=== PATIENT | female | born 2000 | race Caucasian/White ===

== ENCOUNTER 2020-10-06 18:36 | Inpatient (IN) | payer OTHER ==
[~2020-10-06 18:36] MED LIST: Iopamidol-370 76% 500 ML 1 ML ONE
--- NOTE | 2020-10-06 19:13 | RAD ---
Portable frontal chest radiograph: 10/06/2020 COMPARISON: None HISTORY: Short of breath FINDINGS: Diffuse nonspecific interstitial and hazy groundglass opacity noted in the inferior upper l obe regions, bilateral perihilar regions, and both lung bases. No pneumothorax. No large volume pleural effusion. IMPRESSION: Nonspecific interstitial and groundglass opacity bilaterally. Findings are suspicious for atypical infectious pneumonitis, such as Covid 19, in the proper clinical setting. Short-term follow-up imaging of the chest following treatment advised to document resolution.
[2020-10-06 19:18] LABS: #Lymphocytes 0.7 thou/uL (1.20-3.40); #Monocytes 0.3 thou/uL (0.11-0.59); #Neutrophils 5.6 thou/uL (1.40-6.50); %Basophils 0.7 % (0.0-1.0); %Eosinophils 0.1 % (0.0-10.0); %Lymphocytes 10.1 % (28.0-48.0); Hemoglobin 13.6 g/dL (12.0-16.0); Mean Corpuscular HGB CONC 33.6 g/dL (32.0-36.0); Mean Corpuscular Hemoglobin 28.4 pg (25.0-35.0); Mean Corpuscular Volume 84.5 fL (78.0-98.0); Mean Platelet Volume 8.1 fL (7.4-10.4); Platelet Count 208 thou/uL (130-400); RBC Distribution Width 12.5 % (11.5-14.5); Red Blood Cell (RBC) Count 4.79 mill/uL (4.00-5.20); White Blood Cell (WBC) Count 6.6 thou/uL (4.8-10.8)
[2020-10-06 19:38] LABS: ALT (SGPT) 13 U/L (8-55); AST (SGOT) 34 U/L (5-34); Albumin 4.1 g/dL (3.5-5.0); Alkaline Phosphatase 60 U/L (40-100); Anion Gap 16 mmol/L (10-20); BUN (Urea Nitrogen) 13 mg/dL (7.0-18.7); Bilirubin, Total 0.5 mg/dL (0.2-1.2); Calc. Creatinine Clearance 0 mL/min (70-130); Calcium 8.7 mg/dL (7.8-10.44); Carbon Dioxide 24 mmol/L (22-29); Chloride 103 mmol/L (98-107); Globulin 3.6 g/dL (2.4-3.5); Glucose 102 mg/dL (70-105); Potassium 3.3 mmol/L (3.5-5.1); Protein, Total 7.7 g/dL (6.0-8.3); Sodium 140 mmol/L (136-145)
[2020-10-06 20:15] LABS: BHCG - Serum Negative (NEGATIVE); Pregs Control Background? CLEAR/WHITE (CLR/WHITE); Pregs Control Bar Appear? YES (CONTROL BAR)
[2020-10-06] MEDS ORDERED: Ketorolac Tromethamine 30 MG/ML VIAL ONE (20:27)
--- NOTE | 2020-10-06 21:06 | CT ---
CT ANGIOGRAM OF CHEST WITH CONTRAST: 10/06/20 HISTORY: COVID symptoms, shortness of breath, nausea and vomiting. COMPARISON: Radiograph of the chest same day. FINDINGS: CT angiogram chest performed after the intravenous administration of contrast. 3D rendering provided. No proximal segmental pulmonary arterial filling defect. The aortic contour is normal. No pericardia l effusion. Reactive mediastinal lymph nodes. Moderate/extensive patchy ground glass opacities throughout the [place] gs. No pneumothorax. No pneumomediastinum. Thoracic spine is intact. Sternum and manubrium are intact. IMPRESSION: 1. No pulmonary embolism. 2. Moderate/extensive COVID pneumonia. No pneumothorax or pneumomediastinum. POS: HOME
[2020-10-06] MEDS ORDERED: Dexamethasone 10 MG/ML VIAL ONE (21:16)
[2020-10-06 21:53] LABS: SARS-CoV-2 NAA Rapid Test DETECTED (NotDetected)
[2020-10-06] MEDS ORDERED: Guaifenesin DM 100-10/5 ML UDCUP PO PRN (23:05)
[2020-10-06] MEDS ORDERED: Calcium Carbonate 500 MG ChewTAB PO PRN (23:05)
[2020-10-06] MEDS ORDERED: Ondansetron PF 4 MG/2 ML Vial IVP PRN (23:05)
[2020-10-06] MEDS ORDERED: Zolpidem Tartrate 5 MG TAB PO PRN (23:05)
[2020-10-06] MEDS ORDERED: HYDROcodone/Acetaminophen 7.5/325 mg Tablet PO PRN (23:05)
[2020-10-06] MEDS ORDERED: hydrALAZINE 20 MG/ML VIAL SLOW IVP PRN (23:07)
--- NOTE | 2020-10-06 23:55 | PDOC.HHP ---
Hospitalist HPI Cough and low oxygen History of Present Illness: 20-year-old female with history of mild obesity, admitted after noticing home O2 sats low at 79%. She has been having cough, fever, malaise, chest congestion and shortness of breath since the last 5 days. She denies any Covid exposure. She lives in the community with her roommate. She denies any headache or dizziness. On arrival in the ED her O2 sat was initially 85% and both improved on nasal cannula supplemental oxygen to greater than 90 now. Chest x-ray shows moderate extensive bilateral interstitial infiltrate consistent with Covid pneumonia. Rapid Covid screen was positive. She has been admitted Covid pneumonia with hypoxic respiratory failure Allergies/Adverse Reactions: Allergy/AdvReac Type Severity Reaction Status Date / Time amoxicillin Allergy Unverified 10/06/20 23:23 Past History: PMHx: None PSHx: None FHx: Both parents alive and well, mother with history of blood clots Social: No history of tobacco, alcohol or illicit drug use Hospitalist HPI ROS All other systems reviewed; all pertinent +/- noted in HPI/Subj Hospitalist Exam Vitals: Slightly overweight young female, on nasal cannula O2 1 L General Appearance: NAD, awake alert, ill appearing Eye: PERRL, anicteric sclera ENT: normocephalic atraumatic, no oropharyngeal lesions Neck: supple, symmetric, no JVD Heart: RRR, no murmur Respiratory: CTAB, no wheezes Gastrointestinal: soft, non-tender, no palpable masses Extremities: no cyanosis, no clubbing Skin: normal turgor, no lesions Neurological: cranial nerve grossly intact, no focal deficits Musculoskeletal: normal tone, normal strength Psychiatric: normal affect, normal behavior Hospitalist Results Result Diagrams: 10/06/20 19:05 10/06/20 19:05 Lab results: Laboratory Last Values WBC 6.6 thou/uL (4.8-10.8) 10/06/20 19:05 RBC 4.79 mill/uL (4.00-5.20) 10/06/20 19:05 Hgb 13.6 g/dL (12.0-16.0) 10/06/20 19:05 Hct 40.5 % (36.0-47.0) 10/06/20 19:05 MCV 84.5 fL (78.0-98.0) 10/06/20 19:05 MCH 28.4 pg (25.0-35.0) 10/06/20 19:05 MCHC 33.6 g/dL (32.0-36.0) 10/06/20 19:05 RDW 12.5 % (11.5-14.5) 10/06/20 19:05 Plt Count 208 thou/uL (130-400) 10/06/20 19:05 MPV 8.1 fL (7.4-10.4) 10/06/20 19:05 Neutrophils % 85.0 % (31.0-61.0) H 10/06/20 19:05 Lymphocytes % 10.1 % (28.0-48.0) L 10/06/20 19:05 Monocytes % 4.0 % (0.0-4.0) 10/06/20 19:05 Eosinophils % 0.1 % (0.0-10.0) 10/06/20 19:05 Basophils % 0.7 % (0.0-1.0) 10/06/20 19:05 Neutrophils # 5.6 thou/uL (1.40-6.50) 10/06/20 19:05 Lymphocytes # 0.7 thou/uL (1.20-3.40) L 10/06/20 19:05 Monocytes # 0.3 thou/uL (0.11-0.59) 10/06/20 19:05 Eosinophils # 0.0 thou/uL (0.0-0.7) 10/06/20 19:05 Basophils # 0.0 thou/uL (0.0-0.2) 10/06/20 19:05 D-Dimer 1.27 *mcg/mL (0.27-0.43) H 10/06/20 19:05 Sodium 140 mmol/L (136-145) 10/06/20 19:05 Potassium 3.3 mmol/L (3.5-5.1) L 10/06/20 19:05 Chloride 103 mmol/L (98-107) 10/06/20 19:05 Carbon Dioxide 24 mmol/L (22-29) 10/06/20 19:05 Anion Gap 16 mmol/L (10-20) 10/06/20 19:05 BUN 13 mg/dL (7.0-18.7) 10/06/20 19:05 Creatinine 0.80 mg/dL (0.6-1.1) 10/06/20 19:05 Estimated GFR (MDRD) Greater than 90 10/06/20 19:05 Glucose 102 mg/dL (70-105) 10/06/20 19:05 Calcium 8.7 mg/dL (7.8-10.44) 10/06/20 19:05 Ferritin 520.74 ng/mL (10-291) H 10/06/20 19:05 Total Bilirubin 0.5 mg/dL (0.2-1.2) 10/06/20 19:05 AST 34 U/L (5-34) 10/06/20 19:05 ALT 13 U/L (8-55) 10/06/20 19:05 Alkaline Phosphatase 60 U/L (40-100) 10/06/20 19:05 C-Reactive Protein 23.91 mg/dL (= or < 0.5) H 10/06/20 19:05 Serum Total Protein 7.7 g/dL (6.0-8.3) 10/06/20 19:05 Albumin 4.1 g/dL (3.5-5.0) 10/06/20 19:05 Globulin 3.6 g/dL (2.4-3.5) H 10/06/20 19:05 Albumin/Globulin Ratio 1.1 g/dL (1.2-2.2) L 10/06/20 19:05 TSH 3rd Generation 1.1614 uIU/mL (0.35-4.94) 10/06/20 19:05 Serum , Qual Negative (NEGATIVE) 10/06/20 19:05 Influenza A RNA INAAT Not Detected (NotDetected) 10/06/20 20:47 Influenza B RNA INAAT Not Detected (NotDetected) 10/06/20 20:47 SARS-CoV-2 Rap RNA(RT-PCR) DETECTED (NotDetected) A* 10/06/20 20:47 Hospitalist H&P A/P (1) Pneumonia due to COVID-19 virus Code(s): U07.1 - COVID-19; J12.82 - PNEUMONIA DUE TO CORONAVIRUS DISEASE 2019 Status: Acute (2) Respiratory failure with hypoxia Code(s): J96.91 - RESPIRATORY FAILURE, UNSPECIFIED WITH HYPOXIA Status: Acute (3) Hypokalemia Code(s): E87.6 - HYPOKALEMIA Status: Acute Plan: COVID-19 positive test (U07.1, COVID-19) with Acute Pneumonia (J12.89, Other viral pneumonia) (If respiratory failure or sepsis present, add as separate assessment) Start ivermectin/Decadron/zinc oxide Wean O2 as tolerated Keep in droplet isolation We will add inhaled budesonide if available Hypoxiaimproving with supplemental O2 Wean as tolerated DVT prophylaxissubcutaneous Lovenox Disposition possible hospital stay for 24 to 48 hours
[2020-10-06] MEDS ORDERED: Budesonide 0.25 MG/2 ML NEB INH SCH (23:59)
[2020-10-06] MEDS ORDERED: Ivermectin 3 MG TAB PO SCH (23:59)
[2020-10-06] MEDS ORDERED: Potassium Chloride 20 MEQ TAB PO SCH (23:59)
[2020-10-07 01:09] VITALS: BMI 26.4
[2020-10-07] MEDS ORDERED: Mometasone 100 MCG/PUFF (1 INHALER) INH SCH (01:15)
[2020-10-07] MEDS: Mometasone 100 MCG/PUFF (1 INHALER) INH SCH ×2 (05:39→18:29)
[2020-10-07] MEDS: Acetaminophen 325 MG TAB PO PRN ×3 (06:01→21:22)
[2020-10-07] MEDS ORDERED: Budesonide 0.25 MG/2 ML NEB INH SCH (06:30)
[2020-10-07 06:39] LABS: #Lymphocytes 0.6 thou/uL (1.20-3.40); #Monocytes 0.1 thou/uL (0.11-0.59); %Basophils 0.3 % (0.0-1.0); %Eosinophils 0.2 % (0.0-10.0); %Lymphocytes 12.8 % (28.0-48.0); %Neutrophils 84.6 % (31.0-61.0); Hemoglobin 12.7 g/dL (12.0-16.0); Mean Corpuscular HGB CONC 33.6 g/dL (32.0-36.0); Mean Corpuscular Hemoglobin 28.5 pg (25.0-35.0); Mean Corpuscular Volume 84.8 fL (78.0-98.0); Mean Platelet Volume 8.8 fL (7.4-10.4); Platelet Count 213 thou/uL (130-400); RBC Distribution Width 12.3 % (11.5-14.5); Red Blood Cell (RBC) Count 4.44 mill/uL (4.00-5.20); White Blood Cell (WBC) Count 4.8 thou/uL (4.8-10.8)
[2020-10-07 06:52] LABS: ALT (SGPT) 14 U/L (8-55); AST (SGOT) 36 U/L (5-34); Albumin 3.7 g/dL (3.5-5.0); Alkaline Phosphatase 53 U/L (40-100); Anion Gap 16 mmol/L (10-20); BUN (Urea Nitrogen) 14 mg/dL (7.0-18.7); Bilirubin, Total 0.5 mg/dL (0.2-1.2); Calc. Creatinine Clearance 155 mL/min (70-130); Calcium 8.7 mg/dL (7.8-10.44); Carbon Dioxide 24 mmol/L (22-29); Chloride 100 mmol/L (98-107); Globulin 3.6 g/dL (2.4-3.5); Glucose 124 mg/dL (70-105); Potassium 3.9 mmol/L (3.5-5.1); Protein, Total 7.3 g/dL (6.0-8.3); Sodium 136 mmol/L (136-145)
[2020-10-07] MEDS: Enoxaparin Sodium 40 MG/0.4 ML SYRINGE SC SCH (09:13)
[2020-10-07] MEDS: Famotidine 20 MG TAB PO SCH ×2 (09:13→21:09)
[2020-10-07] MEDS: Zinc Sulfate 220 MG CAP PO SCH (09:13)
[2020-10-07] MEDS: guaiFENesin ER 600 MG TAB PO SCH ×2 (09:14→21:10)
[2020-10-07] MEDS: Dexamethasone 4 MG TAB PO SCH ×2 (09:14→16:35)
--- NOTE | 2020-10-07 11:28 | PDOC.HOSPP ---
- Subjective Encounter Date: 10/07/20 Encounter Time: 11:26 Subjective: Patient reports shortness of breath. She has intermittent dry cough. She is now requiring 4 L of oxygen by nasal cannula to keep her oxygen saturation above 90%. Noted checks x-ray and CTA thorax report moderate to severe bilateral infiltrates. - Objective Vital Signs & Weight: Vital Signs (12 hours) Temp Pulse Resp BP Pulse Ox 10/07/20 07:10 98.7 F 84 20 126/78 91 L 10/07/20 05:08 98.4 F 80 20 109/64 93 L 10/07/20 01:04 98.5 F 86 26 H 112/76 90 L Weight Weight 174 lb 2.643 oz Result Diagrams: 10/07/20 05:54 10/07/20 05:54 Hospitalist ROS - Medication Medications: Active Medications Generic Name Dose Route Start Last Admin Trade Name Freq PRN Reason Stop Dose Admin Acetaminophen 650 mg 10/06/20 23:05 10/07/20 10:29 Acetaminophen 325 Mg Tab PO 650 mg Q4H PRN Administration Headache/Fever/Mild Pain (1-3) Dexamethasone 4 mg 10/07/20 08:00 10/07/20 09:14 Dexamethasone 4 Mg Tab PO 4 mg BID-WM DANIA Administration Enoxaparin Sodium 40 mg 10/07/20 09:00 10/07/20 09:13 Enoxaparin Sodium 40 Mg/0.4 Ml Syringe SC 40 mg 0900 DANIA Administration Famotidine 20 mg 10/07/20 09:00 10/07/20 09:13 Famotidine 20 Mg Tab PO 20 mg BID DANIA Administration Guaifenesin 1,200 mg 10/07/20 09:00 10/07/20 09:14 Guaifenesin Er 600 Mg Tab PO 1,200 mg Q12HR DANIA Administration Mometasone Furoate 200 mcg 10/07/20 06:30 10/07/20 05:39 Mometasone 100 Mcg/Puff (1 Inhaler) INH 2 inh BID-RT DANIA Administration Zinc Sulfate 220 mg 10/07/20 09:00 10/07/20 09:13 Zinc Sulfate 220 Mg Cap PO 220 mg DAILY DANIA Administration Hospitalist Exam Vitals: Vital Signs (12 hours) Temp Pulse Resp BP Pulse Ox 10/07/20 07:10 98.7 F 84 20 126/78 91 L 10/07/20 05:08 98.4 F 80 20 109/64 93 L 10/07/20 01:04 98.5 F 86 26 H 112/76 90 L Weight Weight 174 lb 2.643 oz General Appearance: NAD, awake alert Eye: anicteric sclera ENT: moist mucosa Neck: no JVD Heart: RRR Respiratory - other findings: Nonlabored breathing. Gastrointestinal: non-distended Extremities: no cyanosis, no edema Skin: no rashes Neurological: no focal deficits Psychiatric: normal affect, normal behavior, A&O x 3 Hosp A/P (1) Respiratory failure with hypoxia Code(s): J96.91 - RESPIRATORY FAILURE, UNSPECIFIED WITH HYPOXIA Status: Acute (2) Pneumonia due to COVID-19 virus Code(s): U07.1 - COVID-19; J12.82 - PNEUMONIA DUE TO CORONAVIRUS DISEASE 2019 Status: Acute (3) Hypokalemia Code(s): E87.6 - HYPOKALEMIA Status: Acute - Plan Patient now requiring 4 L of oxygen by nasal cannula. Her respiratory condition is getting worse. Pharmacy contacted to evaluate for remdesivir therapy. Continue dexamethasone Continue vitamin C, vitamin D and zinc supplementations. Titrate oxygen. Hypokalemia corrected. Continue to monitor inflammatory markers.
[2020-10-07] MEDS ORDERED: REMDESIVIR (EUA) 200 MG in Sodium Chloride 0.9% 250 ML 210 ML IV SCH (13:00)
[2020-10-08] MEDS: Mometasone 100 MCG/PUFF (1 INHALER) INH SCH ×2 (05:49→18:33)
[2020-10-08] MEDS: Enoxaparin Sodium 40 MG/0.4 ML SYRINGE SC SCH (08:28)
[2020-10-08] MEDS: Zinc Sulfate 220 MG CAP PO SCH (08:28)
[2020-10-08] MEDS: Dexamethasone 4 mg/ml Vial SLOW IVP SCH (08:30)
[2020-10-08] MEDS: Colchicine 0.6 MG TAB PO SCH ×2 (08:30→19:59)
[2020-10-08] MEDS: guaiFENesin ER 600 MG TAB PO SCH ×2 (08:30→19:59)
[2020-10-08] MEDS: REMDESIVIR (EUA) 100 MG in Sodium Chloride 0.9% 250 ML 230 ML IV SCH (14:41)
--- NOTE | 2020-10-08 17:16 | PDOC.HOSPP ---
- Subjective Encounter Date: 10/08/20 Encounter Time: 09:30 Subjective: Seen in follow-up for acute hypoxic respiratory failure. She reports feeling better than yesterday. Reports cough, small amount of sputum. Does not know if she had fever. - Objective Vital Signs & Weight: Vital Signs (12 hours) Temp Pulse Resp BP Pulse Ox 10/08/20 08:40 99 10/08/20 07:00 98.3 F 80 18 145/73 H 99 10/08/20 05:18 98.2 F 73 20 98/66 93 L Weight Weight 174 lb 2.643 oz I&O: 10/07/20 10/08/20 10/09/20 06:59 06:59 06:59 Intake Total 240 Balance 240 Result Diagrams: 10/07/20 05:54 10/07/20 05:54 Additional Labs: Labs and MAR reviewed by or Hospitalist ROS - Review of Systems Respiratory: reports: cough, SOB with excertion, sputum. denies: dry, shortness of breath, hemoptysis, pleuritic pain, wheezing Cardiovascular: denies: chest pain, palpitations, orthopnea, paroxysmal noc. dyspnea, edema, light headedness - Medication Medications: Active Medications Generic Name Dose Route Start Last Admin Trade Name Freq PRN Reason Stop Dose Admin Acetaminophen 650 mg 10/06/20 23:05 10/07/20 21:22 Acetaminophen 325 Mg Tab PO 650 mg Q4H PRN Administration Headache/Fever/Mild Pain (1-3) Colchicine 0.6 mg 10/08/20 09:00 10/08/20 08:30 Colchicine 0.6 Mg Tab PO 0.6 mg BID DANIA Administration Dexamethasone 6 mg 10/08/20 09:00 10/08/20 08:30 Dexamethasone 4 Mg/Ml Vial SLOW IVP 6 mg DAILY DANIA Administration Enoxaparin Sodium 40 mg 10/07/20 09:00 10/08/20 08:28 Enoxaparin Sodium 40 Mg/0.4 Ml Syringe SC 40 mg 0900 DANIA Administration Guaifenesin 1,200 mg 10/07/20 09:00 10/08/20 08:30 Guaifenesin Er 600 Mg Tab PO 1,200 mg Q12HR DANIA Administration Remdesivir 100 mg/ Sodium 250 mls @ 250 mls/hr 10/08/20 13:00 10/08/20 14:41 Chloride IV 10/11/20 13:59 250 mls 1300 DANIA Administration Mometasone Furoate 200 mcg 10/07/20 06:30 10/08/20 05:49 Mometasone 100 Mcg/Puff (1 Inhaler) INH 2 inh BID-RT DANIA Administration Pantoprazole Sodium 40 mg 10/08/20 09:00 10/08/20 08:30 Pantoprazole 40 Mg Tab PO 40 mg DAILY DANIA Administration Sodium Chloride 10 ml 10/08/20 09:00 10/08/20 08:31 Flush - Normal Saline 10 Ml Syringe IVF 10 ml Q12HR DANIA Administration Sodium Chloride 10 ml 10/08/20 08:00 10/08/20 14:41 Flush - Normal Saline 10 Ml Syringe IVF 10 ml PRN PRN Administration Saline Flush Zinc Sulfate 220 mg 10/07/20 09:00 10/08/20 08:28 Zinc Sulfate 220 Mg Cap PO 220 mg DAILY DANIA Administration Hospitalist Exam Vitals: Vital Signs (12 hours) Temp Pulse Resp BP Pulse Ox 10/08/20 08:40 99 10/08/20 07:00 98.3 F 80 18 145/73 H 99 10/08/20 05:18 98.2 F 73 20 98/66 93 L Weight Weight 174 lb 2.643 oz General Appearance: awake alert Eye: PERRL ENT: moist mucosa Neck: supple Heart: RRR Respiratory: CTAB Gastrointestinal: soft, non-tender Skin: no rashes Psychiatric: normal affect, normal behavior Hosp A/P - Plan (1) Respiratory failure with hypoxia Code(s): J96.91 - RESPIRATORY FAILURE, UNSPECIFIED WITH HYPOXIA Status: Acute (2) Pneumonia due to COVID-19 virus Code(s): U07.1 - COVID-19; J12.82 - PNEUMONIA DUE TO CORONAVIRUS DISEASE 2019 Status: Acute - Plan Patient now requiring 5 L of oxygen by nasal cannula. Continue remdesivir therapy. Start colchicine. Continue dexamethasone Continue vitamin C, vitamin D and zinc supplementations. Titrate oxygen. Continue to monitor inflammatory markers.
[2020-10-09] MEDS: Mometasone 100 MCG/PUFF (1 INHALER) INH SCH ×2 (05:39→17:44)
[2020-10-09 06:43] LABS: Hemoglobin 12.6 g/dL (12.0-16.0); Mean Corpuscular HGB CONC 33.7 g/dL (32.0-36.0); Mean Corpuscular Hemoglobin 29.2 pg (25.0-35.0); Mean Corpuscular Volume 86.7 fL (78.0-98.0); Platelet Count 311 thou/uL (130-400); RBC Distribution Width 12.4 % (11.5-14.5); Red Blood Cell (RBC) Count 4.31 mill/uL (4.00-5.20); White Blood Cell (WBC) Count 10.2 thou/uL (4.8-10.8)
[2020-10-09 07:03] LABS: Anion Gap 13 mmol/L (10-20); BUN (Urea Nitrogen) 21 mg/dL (7.0-18.7); CRP (Inflammatory) 2.72 mg/dL (= or < 0.5); Calc. Creatinine Clearance 153 mL/min (70-130); Calcium 8.3 mg/dL (7.8-10.44); Carbon Dioxide 25 mmol/L (22-29); Chloride 104 mmol/L (98-107); Glucose 112 mg/dL (70-105); Potassium 3.7 mmol/L (3.5-5.1); Sodium 138 mmol/L (136-145)
[2020-10-09] MEDS: Enoxaparin Sodium 40 MG/0.4 ML SYRINGE SC SCH (08:24)
[2020-10-09] MEDS: Zinc Sulfate 220 MG CAP PO SCH (08:24)
[2020-10-09] MEDS: Colchicine 0.6 MG TAB PO SCH ×2 (08:25→21:46)
[2020-10-09] MEDS: Dexamethasone 4 mg/ml Vial SLOW IVP SCH (08:25)
[2020-10-09] MEDS: guaiFENesin ER 600 MG TAB PO SCH ×2 (08:25→21:47)
[2020-10-09 09:10] LABS: Band 13 % (5-11); Lymphocytes 20 % (28-48); MDiff Complete? YES; Monocytes 10 % (0-4); Neutrophil 52 % (31-61); RBC Morphology Normal; Reactive Lymphocytes 5 % (0-10)
[2020-10-09] MEDS: REMDESIVIR (EUA) 100 MG in Sodium Chloride 0.9% 250 ML 230 ML IV SCH (12:51)
--- NOTE | 2020-10-09 17:57 | PDOC.HOSPP ---
- Subjective Encounter Date: 10/09/20 Encounter Time: 10:00 Subjective: Patient seen in follow-up for acute respiratory failure. Reports feeling better. - Objective Vital Signs & Weight: Vital Signs (12 hours) Temp Pulse Resp BP BP Pulse Ox 10/09/20 16:46 98.9 F 62 16 117/78 97 10/09/20 15:33 98.8 F 83 18 106/68 99 10/09/20 12:05 98.7 F 54 L 18 106/74 94 L 10/09/20 09:16 94 L 10/09/20 07:32 97.8 F 55 L 18 94/58 L 94 L Weight Weight 174 lb 2.643 oz I&O: 10/08/20 10/09/20 10/10/20 06:59 06:59 06:59 Intake Total 240 Balance 240 Result Diagrams: 10/09/20 06:27 10/09/20 06:27 Additional Labs: I reviewed patient's labs and MAR Hospitalist ROS - Review of Systems Constitutional: denies: fever, chills, sweats, weakness, malaise Respiratory: reports: cough, SOB with excertion, sputum Cardiovascular: denies: chest pain, palpitations, orthopnea, paroxysmal noc. dyspnea, edema, light headedness - Medication Medications: Active Medications Generic Name Dose Route Start Last Admin Trade Name Freq PRN Reason Stop Dose Admin Acetaminophen 650 mg 10/06/20 23:05 10/07/20 21:22 Acetaminophen 325 Mg Tab PO 650 mg Q4H PRN Administration Headache/Fever/Mild Pain (1-3) Colchicine 0.6 mg 10/08/20 09:00 10/09/20 08:25 Colchicine 0.6 Mg Tab PO 0.6 mg BID DANIA Administration Dexamethasone 6 mg 10/08/20 09:00 10/09/20 08:25 Dexamethasone 4 Mg/Ml Vial SLOW IVP 6 mg DAILY DANIA Administration Enoxaparin Sodium 40 mg 10/07/20 09:00 10/09/20 08:24 Enoxaparin Sodium 40 Mg/0.4 Ml Syringe SC 40 mg 0900 DANIA Administration Guaifenesin 1,200 mg 10/07/20 09:00 10/09/20 08:25 Guaifenesin Er 600 Mg Tab PO 1,200 mg Q12HR DANIA Administration Remdesivir 100 mg/ Sodium 250 mls @ 250 mls/hr 10/08/20 13:00 10/09/20 12:51 Chloride IV 10/11/20 13:59 250 mls 1300 DANIA Administration Mometasone Furoate 200 mcg 10/07/20 06:30 10/09/20 17:44 Mometasone 100 Mcg/Puff (1 Inhaler) INH 2 inh BID-RT DANIA Administration Pantoprazole Sodium 40 mg 10/08/20 09:00 10/09/20 08:25 Pantoprazole 40 Mg Tab PO 40 mg DAILY DANIA Administration Sodium Chloride 10 ml 10/08/20 09:00 10/09/20 08:25 Flush - Normal Saline 10 Ml Syringe IVF 10 ml Q12HR DANIA Administration Sodium Chloride 10 ml 10/08/20 08:00 10/08/20 14:41 Flush - Normal Saline 10 Ml Syringe IVF 10 ml PRN PRN Administration Saline Flush Zinc Sulfate 220 mg 10/07/20 09:00 10/09/20 08:24 Zinc Sulfate 220 Mg Cap PO 220 mg DAILY DANIA Administration Hospitalist Exam Vitals: Vital Signs (12 hours) Temp Pulse Resp BP BP Pulse Ox 10/09/20 16:46 98.9 F 62 16 117/78 97 10/09/20 15:33 98.8 F 83 18 106/68 99 10/09/20 12:05 98.7 F 54 L 18 106/74 94 L 10/09/20 09:16 94 L 10/09/20 07:32 97.8 F 55 L 18 94/58 L 94 L Weight Weight 174 lb 2.643 oz Eye: anicteric sclera ENT: normocephalic atraumatic Neck: supple Heart: RRR Respiratory: CTAB Gastrointestinal: soft, non-tender Skin: no rashes Psychiatric: normal affect, normal behavior Hosp A/P - Plan (1) Respiratory failure with hypoxia Code(s): J96.91 - RESPIRATORY FAILURE, UNSPECIFIED WITH HYPOXIA Status: Acute (2) Pneumonia due to COVID-19 virus Code(s): U07.1 - COVID-19; J12.82 - PNEUMONIA DUE TO CORONAVIRUS DISEASE 2019 Status: Acute - Plan Patient's oxygen requirements have decreased to 4 L/min. Patient is on remdesivir therapy. Patient is on colchicine. Patient is on dexamethasone Patient is on vitamin C, vitamin D and zinc supplementations. Titrate oxygen. Continue to monitor inflammatory markers.
[2020-10-10] MEDS: Mometasone 100 MCG/PUFF (1 INHALER) INH SCH ×2 (06:08→18:17)
[2020-10-10 07:17] LABS: #Eosinphils 0.1 thou/uL (0.0-0.7); #Lymphocytes 2.8 thou/uL (1.20-3.40); #Monocytes 0.9 thou/uL (0.11-0.59); #Neutrophils 7.5 thou/uL (1.40-6.50); %Basophils 0.1 % (0.0-1.0); %Eosinophils 0.5 % (0.0-10.0); %Monocytes 8.1 % (0.0-4.0); %Neutrophils 66.3 % (31.0-61.0); Hemoglobin 12.5 g/dL (12.0-16.0); Mean Corpuscular HGB CONC 33.2 g/dL (32.0-36.0); Mean Corpuscular Hemoglobin 29.1 pg (25.0-35.0); Mean Corpuscular Volume 87.5 fL (78.0-98.0); Mean Platelet Volume 7.8 fL (7.4-10.4); Platelet Count 298 thou/uL (130-400); RBC Distribution Width 12.3 % (11.5-14.5); Red Blood Cell (RBC) Count 4.29 mill/uL (4.00-5.20); White Blood Cell (WBC) Count 11.3 thou/uL (4.8-10.8)
[2020-10-10 07:37] LABS: Anion Gap 11 mmol/L (10-20); BUN (Urea Nitrogen) 16 mg/dL (7.0-18.7); CRP (Inflammatory) 1.26 mg/dL (= or < 0.5); Calc. Creatinine Clearance 162 mL/min (70-130); Calcium 8.1 mg/dL (7.8-10.44); Carbon Dioxide 26 mmol/L (22-29); Chloride 105 mmol/L (98-107); Glucose 94 mg/dL (70-105); Potassium 3.7 mmol/L (3.5-5.1); Sodium 138 mmol/L (136-145)
[2020-10-10] MEDS: Enoxaparin Sodium 40 MG/0.4 ML SYRINGE SC SCH (08:17)
[2020-10-10] MEDS: Colchicine 0.6 MG TAB PO SCH ×2 (08:18→21:55)
[2020-10-10] MEDS: Dexamethasone 4 mg/ml Vial SLOW IVP SCH (08:18)
[2020-10-10] MEDS: Zinc Sulfate 220 MG CAP PO SCH (08:18)
[2020-10-10] MEDS: guaiFENesin ER 600 MG TAB PO SCH ×2 (08:18→21:55)
[2020-10-10] MEDS: REMDESIVIR (EUA) 100 MG in Sodium Chloride 0.9% 250 ML 230 ML IV SCH (12:13)
--- NOTE | 2020-10-10 13:45 | PDOC.HOSPP ---
- Subjective Encounter Date: 10/10/20 Encounter Time: 08:30 Subjective: Seen in follow-up for hypoxic respiratory failure. She reports feeling better. Cough has significantly improved. Shortness of breath is also significantly improved. - Objective Vital Signs & Weight: Vital Signs (12 hours) Temp Pulse Resp BP Pulse Ox 10/10/20 11:50 98.7 F 51 L 18 106/72 98 10/10/20 10:31 97 10/10/20 09:15 96 10/10/20 08:00 97.7 F 47 L 20 95/65 96 10/10/20 04:13 97.7 F 42 L 18 105/70 97 Weight Weight 174 lb 2.643 oz I&O: 10/09/20 10/10/20 10/11/20 06:59 06:59 06:59 Intake Total 1210 Balance 1210 Result Diagrams: 10/10/20 07:03 10/10/20 07:03 Additional Labs: Labs and MAR reviewed by [place] Hospitalist ROS - Review of Systems Constitutional: denies: fever, chills, sweats, weakness, malaise Respiratory: reports: cough, SOB with excertion. denies: dry, shortness of breath, hemoptysis, pleuritic pain, sputum, wheezing Cardiovascular: denies: chest pain, palpitations, orthopnea, paroxysmal noc. dyspnea, edema, light headedness - Medication Medications: Active Medications Generic Name Dose Route Start Last Admin Trade Name Freq PRN Reason Stop Dose Admin Acetaminophen 650 mg 10/06/20 23:05 10/07/20 21:22 Acetaminophen 325 Mg Tab PO 650 mg Q4H PRN Administration Headache/Fever/Mild Pain (1-3) Colchicine 0.6 mg 10/08/20 09:00 10/10/20 08:18 Colchicine 0.6 Mg Tab PO 0.6 mg BID DANIA Administration Dexamethasone 6 mg 10/08/20 09:00 10/10/20 08:18 Dexamethasone 4 Mg/Ml Vial SLOW IVP 6 mg DAILY DANIA Administration Enoxaparin Sodium 40 mg 10/07/20 09:00 10/10/20 08:17 Enoxaparin Sodium 40 Mg/0.4 Ml Syringe SC 40 mg 0900 DANIA Administration Guaifenesin 1,200 mg 10/07/20 09:00 10/10/20 08:18 Guaifenesin Er 600 Mg Tab PO 1,200 mg Q12HR DANIA Administration Remdesivir 100 mg/ Sodium 250 mls @ 250 mls/hr 10/08/20 13:00 10/10/20 12:13 Chloride IV 10/11/20 13:59 250 mls 1300 DANIA Administration Mometasone Furoate 200 mcg 10/07/20 06:30 10/10/20 06:08 Mometasone 100 Mcg/Puff (1 Inhaler) INH 2 inh BID-RT DANIA Administration Pantoprazole Sodium 40 mg 10/08/20 09:00 10/10/20 08:18 Pantoprazole 40 Mg Tab PO 40 mg DAILY DANIA Administration Sodium Chloride 10 ml 10/08/20 09:00 10/10/20 08:18 Flush - Normal Saline 10 Ml Syringe IVF 10 ml Q12HR DANIA Administration Sodium Chloride 10 ml 10/08/20 08:00 10/08/20 14:41 Flush - Normal Saline 10 Ml Syringe IVF 10 ml PRN PRN Administration Saline Flush Zinc Sulfate 220 mg 10/07/20 09:00 10/10/20 08:18 Zinc Sulfate 220 Mg Cap PO 220 mg DAILY DANIA Administration Hospitalist Exam Vitals: Vital Signs (12 hours) Temp Pulse Resp BP Pulse Ox 10/10/20 11:50 98.7 F 51 L 18 106/72 98 10/10/20 10:31 97 10/10/20 09:15 96 10/10/20 08:00 97.7 F 47 L 20 95/65 96 10/10/20 04:13 97.7 F 42 L 18 105/70 97 Weight Weight 174 lb 2.643 oz General Appearance: awake alert Eye: anicteric sclera ENT: moist mucosa Neck: supple Heart: RRR Respiratory: CTAB Gastrointestinal: soft, non-tender Skin: no rashes Musculoskeletal: no muscle wasting Psychiatric: normal affect, normal behavior Hosp A/P - Plan (1) Respiratory failure with hypoxia Code(s): J96.91 - RESPIRATORY FAILURE, UNSPECIFIED WITH HYPOXIA Status: Acute (2) Pneumonia due to COVID-19 virus Code(s): U07.1 - COVID-19; J12.82 - PNEUMONIA DUE TO CORONAVIRUS DISEASE 2019 Status: Acute - Plan Today, patient is on 2 L/min of oxygen, showing significant improvement. Last dose of remdesivir will be tomorrow October 11. Continue colchicine, dexamethasone, vitamin C, vitamin D and zinc supplementa tions. Ferritin has normalized, C-reactive protein improved. Likely discharge in 24 to 48 hours. Patient is a student at &[employer]. They have quarantine protocols in place.
[2020-10-11] MEDS: Mometasone 100 MCG/PUFF (1 INHALER) INH SCH ×2 (05:42→17:24)
[2020-10-11 06:08] LABS: #Eosinphils 0.1 thou/uL (0.0-0.7); #Lymphocytes 3.4 thou/uL (1.20-3.40); #Monocytes 0.9 thou/uL (0.11-0.59); #Neutrophils 6.2 thou/uL (1.40-6.50); %Basophils 0.4 % (0.0-1.0); %Eosinophils 0.9 % (0.0-10.0); %Lymphocytes 31.6 % (28.0-48.0); %Monocytes 8.5 % (0.0-4.0); %Neutrophils 58.6 % (31.0-61.0); Hemoglobin 12.8 g/dL (12.0-16.0); Mean Corpuscular HGB CONC 33.3 g/dL (32.0-36.0); Mean Corpuscular Hemoglobin 28.4 pg (25.0-35.0); Mean Corpuscular Volume 85.5 fL (78.0-98.0); Mean Platelet Volume 7.5 fL (7.4-10.4); Platelet Count 371 thou/uL (130-400); RBC Distribution Width 12.2 % (11.5-14.5); Red Blood Cell (RBC) Count 4.52 mill/uL (4.00-5.20); White Blood Cell (WBC) Count 10.6 thou/uL (4.8-10.8)
[2020-10-11 06:31] LABS: Anion Gap 12 mmol/L (10-20); BUN (Urea Nitrogen) 11 mg/dL (7.0-18.7); CRP (Inflammatory) 1.38 mg/dL (= or < 0.5); Calc. Creatinine Clearance 158 mL/min (70-130); Calcium 7.9 mg/dL (7.8-10.44); Carbon Dioxide 25 mmol/L (22-29); Chloride 104 mmol/L (98-107); Glucose 95 mg/dL (70-105); Potassium 3.9 mmol/L (3.5-5.1); Sodium 137 mmol/L (136-145)
[2020-10-11] MEDS: guaiFENesin ER 600 MG TAB PO SCH ×2 (08:52→21:03)
[2020-10-11] MEDS: Zinc Sulfate 220 MG CAP PO SCH (08:52)
[2020-10-11] MEDS: Enoxaparin Sodium 40 MG/0.4 ML SYRINGE SC SCH (08:53)
[2020-10-11] MEDS: Colchicine 0.6 MG TAB PO SCH ×2 (08:53→21:03)
[2020-10-11] MEDS: Dexamethasone 4 mg/ml Vial SLOW IVP SCH (08:56)
[2020-10-11] MEDS ORDERED: REMDESIVIR (EUA) 100 MG in Sodium Chloride 0.9% 250 ML 230 ML IV SCH (15:00)
[2020-10-11] MEDS: REMDESIVIR (EUA) 100 MG in Sodium Chloride 0.9% 250 ML 230 ML IV SCH (16:12)
--- NOTE | 2020-10-11 18:01 | PDOC.HOSPP ---
- Subjective Encounter Date: 10/11/20 Encounter Time: 09:00 Subjective: Patient seen for follow-up for acute hypoxic respiratory failure. Reports feeling better. No chest pain, shortness of breath, fever or chills. - Objective Vital Signs & Weight: Vital Signs (12 hours) Temp Pulse Resp BP Pulse Ox 10/11/20 08:15 97.6 F 55 L 18 107/72 99 10/11/20 08:00 99 Weight Weight 174 lb 2.643 oz I&O: 10/10/20 10/11/20 10/12/20 06:59 06:59 06:59 Intake Total 1210 1210 360 Balance 1210 1210 360 Result Diagrams: 10/11/20 05:52 10/11/20 05:52 Additional Labs: I reviewed patient's labs and MAR Hospitalist ROS - Review of Systems Constitutional: denies: fever, chills, sweats, weakness, malaise Cardiovascular: denies: chest pain, palpitations, orthopnea, paroxysmal noc. dyspnea, edema, light headedness Gastrointestinal: denies: nausea, vomiting, abdominal pain, diarrhea, constipation, melena, hematochezia - Medication Medications: Active Medications Generic Name Dose Route Start Last Admin Trade Name Freq PRN Reason Stop Dose Admin Acetaminophen 650 mg 10/06/20 23:05 10/07/20 21:22 Acetaminophen 325 Mg Tab PO 650 mg Q4H PRN Administration Headache/Fever/Mild Pain (1-3) Colchicine 0.6 mg 10/08/20 09:00 10/11/20 08:53 Colchicine 0.6 Mg Tab PO 0.6 mg BID DANIA Administration Dexamethasone 6 mg 10/08/20 09:00 10/11/20 08:56 Dexamethasone 4 Mg/Ml Vial SLOW IVP 6 mg DAILY DANIA Administration Enoxaparin Sodium 40 mg 10/07/20 09:00 10/11/20 08:53 Enoxaparin Sodium 40 Mg/0.4 Ml Syringe SC 40 mg 0900 DANIA Administration Guaifenesin 1,200 mg 10/07/20 09:00 10/11/20 08:52 Guaifenesin Er 600 Mg Tab PO 1,200 mg Q12HR DANIA Administration Remdesivir 100 mg/ Sodium 250 mls @ 250 mls/hr 10/11/20 15:00 10/11/20 16:11 Chloride IV 10/11/20 18:00 250 mls NOW DANIA Administration Mometasone Furoate 200 mcg 10/07/20 06:30 10/11/20 17:24 Mometasone 100 Mcg/Puff (1 Inhaler) INH 2 inh BID-RT DANIA Administration Pantoprazole Sodium 40 mg 10/08/20 09:00 10/11/20 08:53 Pantoprazole 40 Mg Tab PO 40 mg DAILY DANIA Administration Sodium Chloride 10 ml 10/08/20 09:00 10/11/20 08:53 Flush - Normal Saline 10 Ml Syringe IVF 10 ml Q12HR DANIA Administration Sodium Chloride 10 ml 10/08/20 08:00 10/08/20 14:41 Flush - Normal Saline 10 Ml Syringe IVF 10 ml PRN PRN Administration Saline Flush Zinc Sulfate 220 mg 10/07/20 09:00 10/11/20 08:52 Zinc Sulfate 220 Mg Cap PO 220 mg DAILY DANIA Administration Hospitalist Exam Vitals: Vital Signs (12 hours) Temp Pulse Resp BP Pulse Ox 10/11/20 08:15 97.6 F 55 L 18 107/72 99 10/11/20 08:00 99 Weight Weight 174 lb 2.643 oz General Appearance: awake alert Eye: anicteric sclera ENT: moist mucosa Neck: supple Heart: RRR Respiratory: CTAB Gastrointestinal: soft, non-tender Skin: no rashes Musculoskeletal: normal tone Psychiatric: normal affect, normal behavior Hosp A/P - Plan (1) Respiratory failure with hypoxia Code(s): J96.91 - RESPIRATORY FAILURE, UNSPECIFIED WITH HYPOXIA Status: Acute (2) Pneumonia due to COVID-19 virus Code(s): U07.1 - COVID-19; J12.82 - PNEUMONIA DUE TO CORONAVIRUS DISEASE 2019 Status: Acute - Plan Try to wean patient off of oxygen. Last dose of remdesivir today October 11. Continue colchicine, dexamethasone, vitamin C, vitamin D and zinc supplementations. Inflammatory markers improved. Likely discharge in 24 to 48 hours. Patient is a student at &[employer]. They have quarantine protocols in place.
[2020-10-12] MEDS: Mometasone 100 MCG/PUFF (1 INHALER) INH SCH (05:37)
[2020-10-12 07:11] LABS: #Eosinphils 0.2 thou/uL (0.0-0.7); #Monocytes 0.8 thou/uL (0.11-0.59); #Neutrophils 5.7 thou/uL (1.40-6.50); %Eosinophils 1.7 % (0.0-10.0); %Lymphocytes 30.8 % (28.0-48.0); %Monocytes 8.5 % (0.0-4.0); %Neutrophils 58.9 % (31.0-61.0); Hemoglobin 13.6 g/dL (12.0-16.0); Mean Corpuscular HGB CONC 33.5 g/dL (32.0-36.0); Mean Corpuscular Hemoglobin 29.1 pg (25.0-35.0); Mean Corpuscular Volume 86.7 fL (78.0-98.0); Mean Platelet Volume 8.2 fL (7.4-10.4); Platelet Count 343 thou/uL (130-400); RBC Distribution Width 12.4 % (11.5-14.5); Red Blood Cell (RBC) Count 4.67 mill/uL (4.00-5.20); White Blood Cell (WBC) Count 9.7 thou/uL (4.8-10.8)
[2020-10-12 07:36] LABS: Anion Gap 11 mmol/L (10-20); BUN (Urea Nitrogen) 11 mg/dL (7.0-18.7); CRP (Inflammatory) 0.87 mg/dL (= or < 0.5); Calc. Creatinine Clearance 153 mL/min (70-130); Calcium 8.1 mg/dL (7.8-10.44); Carbon Dioxide 25 mmol/L (22-29); Chloride 105 mmol/L (98-107); Glucose 92 mg/dL (70-105); Potassium 3.8 mmol/L (3.5-5.1); Sodium 137 mmol/L (136-145)
[2020-10-12] MEDS: Colchicine 0.6 MG TAB PO SCH (09:07)
[2020-10-12] MEDS: guaiFENesin ER 600 MG TAB PO SCH (09:07)
[2020-10-12] MEDS: Zinc Sulfate 220 MG CAP PO SCH (09:08)
[2020-10-12] MEDS: Dexamethasone 4 mg/ml Vial SLOW IVP SCH (09:08)
[2020-10-12] MEDS: Enoxaparin Sodium 40 MG/0.4 ML SYRINGE SC SCH (09:08)
[2020-10-12 12:37] VITALS: BP 100/68; TEMP 98.1
--- NOTE | 2020-10-12 13:52 | PDOC.DS.DS ---
Provider Date of Admission: 10/07/20 18:08 Date of Discharge: 10/12/20 Admitting Provider: Chauncey Swain MD Primary Care Physician: Unknown Course Hospital Course: Discharge diagnosis: 1. Acute hypoxic respiratory failure 2. COVID-19 pneumonia Hospital course: Patient is a pleasant 20-year-old lady who was admitted to the hospital on October 06, 2020 for acute hypoxic respiratory failure secondary to COVID-19 pneumonia. She was treated with dexamethasone, colchicine, zinc and vitamin C. She also received a course of remdesivir. She improved clinically and is being discharged home in a stable condition. She is oxygenating well on room air. Many thanks for allowing me to participate in your patient's care. Please feel free to contact me with any questions or concerns. Discharge destination: Home Total amount of time spent coordinating this discharge: 20 minutes Resuscitation Status: 10/06/20 23:05 Resuscitation Status Routine Resuscitation Status: FULL: Full Resuscitation Lab Results: 10/12/20 06:49 10/12/20 06:49 Abnormal Lab Results - Last 48 hrs 10/11/20 05:52: C-Reactive Protein 1.38 H 10/11/20 05:52: Monocytes % 8.5 H, Monocytes # 0.9 H 10/12/20 06:49: C-Reactive Protein 0.87 H 10/12/20 06:49: Monocytes % 8.5 H, Monocytes # 0.8 H Vitals: Vital Signs (12 hours) Temp Pulse Resp BP BP Pulse Ox 10/12/20 12:36 98.1 F 67 18 100/68 98 10/12/20 08:00 98 10/12/20 07:43 97.7 F 54 L 20 100/69 98 10/12/20 05:30 97.8 F 62 16 100/70 99 Weight Weight 174 lb 2.643 oz Physical Exam: The patient was seen and examined on the day of discharge. Patient denies chest pain or shortness of breath. Vital signs are stable. S1 and S2 are heard. Lungs are clear to auscultation bilaterally. Plan Prescriptions: Dexamethasone 6 mg PO DAILY #4 tablet Aspirin [Ecotrin Low Strength] 81 mg PO DAILY #7 tab Pantoprazole [Protonix] 40 mg PO DAILY #4 tab Ascorbic Acid [Vitamin C] 1,000 mg PO DAILY #7 tablet Zinc Sulfate [Zinc-220] 220 mg PO DAILY #7 capsule Home Medications: Medication Instructions Recorded Confirmed Type Ascorbic Acid [Vitamin C] 1,000 mg PO DAILY #7 tablet 10/12/20 Rx Aspirin [Ecotrin Low Strength] 81 mg PO DAILY #7 tab 10/12/20 Rx Dexamethasone 6 mg PO DAILY #4 tablet 10/12/20 Rx Pantoprazole [Protonix] 40 mg PO DAILY #4 tab 10/12/20 Rx Zinc Sulfate [Zinc-220] 220 mg PO DAILY #7 capsule 10/12/20 Rx Allergies: amoxicillin Allergy (Verified 10/07/20 01:07) PER ER NOTES Activity:: Activity as Tolerated Nourishment:: Regular Diet Referrals: Unknown,Unknown [Primary Care Provider] - 3 Days Disposition: HOME
== END 2020-10-12 13:52 | disposition home or self-care (01) | DRG 177 ==
LOC: ERS 18:36 → T4-A 23:05 → OBSVTOIN 10-07 18:08
PROVIDERS: ADMIT Internal Medicine; ATTEND Internal Medicine
PROC: 8E0ZXY6 Isolation (ICD-10-PCS; 2020-10-06)
PROC: XW033E5 Introduction of Remdesivir Anti-infective into Peripheral Vein, Percutaneous Approach, New Technology Group 5 (ICD-10-PCS; principal; 2020-10-07)
DX: U07.1 COVID-19 (principal); J12.82 Pneumonia due to coronavirus disease 2019; J96.01 Acute respiratory failure with hypoxia; E87.6 Hypokalemia; E66.9 Obesity, unspecified; Z68.26 Body mass index [BMI] 26.0-26.9, adult; Z88.1 Allergy status to other antibiotic agents
CPT/HCPCS: 0240U; 36415; 71045; 71275; 80048; 80053; 82728; 84145; 84443; 84703; 85025; 85379; 86140; 93005; 94760; 96365; 96366; 96372; 96374; 96375; G0378; J1100; J1650; J1885; J7050; J8540; Q9967